=== PATIENT | male | born 1995 | race Caucasian/White ===

== ENCOUNTER 2020-05-07 10:09 | Emergency (ER) | payer OTHER ==
[~2020-05-07] VITALS: Ht 190.5 cm; Wt 108.9 kg
== END 2020-05-07 12:02 | disposition home or self-care (01) ==
LOC: ED 10:09
DX: S61.211A Laceration without foreign body of left index finger without damage to nail, initial encounter (principal); W45.8XXA Other foreign body or object entering through skin, initial encounter; Y93.89 Activity, other specified; Y92.89 Other specified places as the place of occurrence of the external cause; Y99.8 Other external cause status